=== PATIENT | female | born 1950 | race African-American/Black ===

== ENCOUNTER 2019-01-09 20:43 | Emergency (ER) | payer MEDICARE ==
[~2019-01-09] VITALS: Ht 167.6 cm; Wt 125.2 kg
--- NOTE | 2019-01-09 20:58 | NUR ---
PT BROUGHT TO ROOM 40, PLACED ON CORROSION ENGINEER. CXR BEING DONE NOW.
[2019-01-09] MEDS ORDERED: OMEP-110 PO (21:07)
[2019-01-09] MEDS ORDERED: TRAZ50TA66 PO (21:07)
[2019-01-09] MEDS ORDERED: LISI1TAB7 PO (21:07)
[2019-01-09] MEDS ORDERED: ASPI-515 PO (21:07)
[2019-01-09] MEDS ORDERED: ATOR40TA78 PO (21:07)
--- NOTE | 2019-01-09 21:10 | NUR ---
PHYSICIAN AT BEDSIDE. UPDATED ON POC. VSS.
[2019-01-09] MEDS ORDERED: COD LIVER OIL (21:11)
[2019-01-09] MEDS ORDERED: VITAMIN D3 (21:11)
[2019-01-09] MEDS ORDERED: VITAMIN C (21:11)
[2019-01-09] MEDS ORDERED: MAGNESIUM (21:11)
[2019-01-09 21:28] LABS: ALBUMIN 3.4 g/dL (3.4-5.0); ANION GAP 3 mmol/L (5-15); CALCIUM 8.9 mg/dL (8.5-10.1); CHLORIDE 107 mmol/L (98-107); CREATININE 1.15 mg/dL (0.55-1.02)
[2019-01-09 21:32] LABS: T4 (THYROXINE) 9.9 mcg/dL (4.8-13.9); TROPONIN I < 0.015 ng/mL (0.000-0.045)
--- NOTE | 2019-01-09 22:09 | NUR ---
PT RESTING WITH FAMILY AT BEDSIDE. UPDATED ON PLAN OF CARE.
[2019-01-09 22:16] LABS: BASOPHILS # (AUTO) 0.08 x10^3/uL (0-0.1); BASOPHILS % (AUTO) 1 % (0-1); EOSINOPHILS # (AUTO) 0.25 x10^3/uL (0-0.4); EOSINOPHILS % (AUTO) 3 % (1-7); LYMPHOCYTES # (AUTO) 2.91 x10^3/uL (1-3.4); LYMPHOCYTES % (AUTO) 38 % (22-44); MD NO; MEAN CORPUSCULAR HEMOGLOBIN 29.9 pg (27.0-34.8); MEAN CORPUSCULAR HGB CONC 33.3 g/dL (32.4-35.8); MEAN CORPUSCULAR VOLUME 89.7 fL (80-100); MEAN PLATELET VOLUME 8.9 fL (7.4-10.4); MONOCYTES # (AUTO) 0.62 x10^3/uL (0.2-0.8); MONOCYTES % (AUTO) 8 % (2-9); NEUTROPHILS # (AUTO) 3.71 x10^3/uL (1.8-6.8); NEUTROPHILS % (AUTO) 49 % (42-75); PLATELET COUNT 259 x10^3/uL (130-400); RED BLOOD COUNT 4.38 x10^6/uL (3.82-5.3); RED CELL DISTRIBUTION WIDTH 15.9 % (9.6-15.2)
[2019-01-09 22:21] VITALS: BP 130/70
--- NOTE | 2019-01-09 22:38 | NUR ---
Patient/Caregiver given discharge instructions and they have confirmed that they understand the instructions. Patient ambulatory with steady gait.
== END 2019-01-09 22:41 | disposition home or self-care (01) ==
LOC: ED 22:08
DX: R00.2 Palpitations (principal); R06.02 Shortness of breath; I10 Essential (primary) hypertension; E78.5 Hyperlipidemia, unspecified
CPT/HCPCS: 36415; 71045; 80048; 82040; 83735; 84436; 84443; 84484; 85025; 93005; 99284

== ENCOUNTER 2019-08-26 10:20 | Emergency (ER) | payer MEDICARE ==
[~2019-08-26] VITALS: Ht 167.6 cm; Wt 122.6 kg
[~2019-08-26 10:20] MED LIST: ASPI-515 PO; ATOR40TA78 PO; COD LIVER OIL; LISI1TAB20 PO; MAGNESIUM; OMEP-110 PO; TRAZ50TA66 PO; VITAMIN C; VITAMIN D3
[2019-08-26 10:23] VITALS: BP 181/70
[2019-08-26 10:51] LABS: BASOPHILS # (AUTO) 0.02 x10^3/uL (0-0.1); BASOPHILS % (AUTO) 0 % (0-1); EOSINOPHILS % (AUTO) 2 % (1-7); LYMPHOCYTES # (AUTO) 2.13 x10^3/uL (1-3.4); LYMPHOCYTES % (AUTO) 38 % (22-44); MD NO; MEAN CORPUSCULAR HEMOGLOBIN 29.7 pg (27.0-34.8); MEAN CORPUSCULAR HGB CONC 32.4 g/dL (32.4-35.8); MEAN CORPUSCULAR VOLUME 91.6 fL (80-100); MEAN PLATELET VOLUME 8.6 fL (7.4-10.4); MONOCYTES # (AUTO) 0.44 x10^3/uL (0.2-0.8); MONOCYTES % (AUTO) 8 % (2-9); NEUTROPHILS # (AUTO) 2.87 x10^3/uL (1.8-6.8); NEUTROPHILS % (AUTO) 52 % (42-75); PLATELET COUNT 250 x10^3/uL (130-400); RED BLOOD COUNT 4.68 x10^6/uL (3.82-5.3); RED CELL DISTRIBUTION WIDTH 15.9 % (9.6-15.2)
[2019-08-26 11:02] LABS: ALANINE AMINOTRANSFERASE 24 U/L (12-78); ALBUMIN 3.5 g/dL (3.4-5.0); ANION GAP 6 mmol/L (5-15); CALCIUM 9.1 mg/dL (8.5-10.1); CHLORIDE 106 mmol/L (98-107); CREATININE 0.95 mg/dL (0.55-1.02)
[2019-08-26 11:04] LABS: ALKALINE PHOSPHATASE 111 U/L (45-117); BILIRUBIN,TOTAL 0.6 mg/dL (0.2-1.0); TOTAL PROTEIN 7.8 g/dL (6.4-8.2)
--- NOTE | 2019-08-26 11:10 | NUR ---
ULTRASOUND AT BEDSIDE AT THIS TIME.
[2019-08-26 12:02] LABS: MICROSCOPIC NOT IND
[2019-08-26 12:07] LABS: CULTURE INDICATED? NO
== END 2019-08-26 12:45 | disposition home or self-care (01) ==
LOC: ED 10:37
DX: K80.20 Calculus of gallbladder without cholecystitis without obstruction (principal); I10 Essential (primary) hypertension; E78.5 Hyperlipidemia, unspecified
CPT/HCPCS: 36415; 76700; 80053; 81003; 83690; 85025; 99284

== ENCOUNTER 2019-09-07 05:47 | Day surgery (SDC) | payer MEDICARE ==
[~2019-09-07] VITALS: Ht 167.6 cm; Wt 120.0 kg
[~2019-09-07 05:47] MED LIST changes: +ASCO-96 PO; +CHOL100011 PO; +VIT1CAPS44 PO
[2019-09-07] MEDS ORDERED: LACTATED RINGERS 1,000 ML IV SCH (06:37)
[2019-09-07] MEDS ORDERED: EPINEPHRINE 1 MG/ML, 1ML ONE (06:49)
[2019-09-07] MEDS ORDERED: BUPIVACAINE/PF 0.5% ONE (06:49)
[2019-09-07 07:00] VITALS: BP 145/83
[2019-09-07] MEDS ORDERED: MIDAZOLAM 1 MG/ML, 2ML ONE (07:23)
[2019-09-07] MEDS ORDERED: FENTANYL PF 250 MCG/5ML ONE (07:23)
[2019-09-07] MEDS ORDERED: ALBUTEROL SULFATE 2.5 MG/3 ML NPPB PRN (08:00)
[2019-09-07] MEDS ORDERED: HYDROmorphone 2 MG/ML, 1ML IVPush PRN (08:00)
[2019-09-07] MEDS ORDERED: hydrALAzine 20 MG/ML, 1ML IV PRN (08:00)
[2019-09-07] MEDS ORDERED: LABETALOL 5MG/ML, 20ML IV PRN (08:00)
[2019-09-07] MEDS ORDERED: DIAZEPAM 5 MG/ML, 2ML IVPush PRN (08:00)
[2019-09-07] MEDS ORDERED: MEPERIDINE/PF 25MG/0.5ML IVPush PRN (08:00)
[2019-09-07] MEDS ORDERED: OXYcodone 5 MG/5 ML ORAL.SOL UDC PO PRN (08:00)
[2019-09-07] MEDS ORDERED: ACETAMINOPHEN 325 MG TABLET PO PRN (08:00)
[2019-09-07] MEDS ORDERED: PROMETHAZINE 25 MG/ML, 1ML IV PRN (08:00)
[2019-09-07] MEDS ORDERED: KETOROLAC 30 MG/1 ML IV PRN (08:00)
[2019-09-07] MEDS ORDERED: ROCURONIUM 10MG/ML,5ML ONE (08:22)
[2019-09-07] MEDS ORDERED: CEFAZOLIN 1,000 MG ONE (08:22)
[2019-09-07] MEDS ORDERED: PROPOFOL 10 MG/ML, 20ML ONE (08:22)
[2019-09-07] MEDS ORDERED: ONDANSETRON 2MG/ML, 2ML ONE (08:22)
[2019-09-07] MEDS ORDERED: DEXAMETHASONE 4 MG/ML, 1ML ONE (08:22)
[2019-09-07] MEDS ORDERED: SUCCINYLCHOLINE 20 MG/ML, 10ML ONE (08:22)
[2019-09-07] MEDS ORDERED: GLYCOPYRROLATE 0.2MG/1ML, 5ML ONE (08:22)
[2019-09-07] MEDS ORDERED: NEOSTIGMINE 1 MG/ML, 10ML ONE (08:22)
[2019-09-07] MEDS ORDERED: SUGAMMADEX 200 MG/2 ML IVPush ONE (08:23)
[2019-09-07] MEDS ORDERED: KETOROLAC 30 MG/1 ML ONE (08:37)
[2019-09-07] MEDS ORDERED: FENTANYL PF 100 MCG/2ML ONE (08:54)
[2019-09-07] MEDS ORDERED: OXYcodone 5 MG/5 ML ORAL.SOL UDC ONE (08:54)
[2019-09-07] MEDS: FENTANYL PF 100 MCG/2ML IV PRN ×2 (08:55→09:00)
== END 2019-09-07 10:30 | disposition home or self-care (01) ==
LOC: OUT 05:47
PROVIDERS: ATTEND Surgery
DX: K80.10 Calculus of gallbladder with chronic cholecystitis without obstruction (principal); E66.01 Morbid (severe) obesity due to excess calories; I10 Essential (primary) hypertension; E78.5 Hyperlipidemia, unspecified; G47.30 Sleep apnea, unspecified; Z68.41 Body mass index [BMI] 40.0-44.9, adult; Z79.82 Long term (current) use of aspirin; Z79.899 Other long term (current) drug therapy; Z82.49 Family history of ischemic heart disease and other diseases of the circulatory system; Z83.3 Family history of diabetes mellitus
CPT/HCPCS: 47562; 88304; 93005; C1729; J0171; J0690; J1100; J1885; J2250; J2405; J2704; J3010; J7120; J2710; J0330